=== PATIENT | male | born 1985 | race Two or more races ===

== ENCOUNTER 2017-03-10 18:37 | Emergency (ER) | payer SELFPAY ==
[~2017-03-10] VITALS: Ht 170.2 cm; Wt 100.0 kg
[2017-03-10] MEDS ORDERED: ACETAMINOPHEN 325MG TABLET PO ONE (22:30)
[2017-03-10] MEDS ORDERED: IBUPROFEN 800MG TABLET PO ONE (22:30)
[2017-03-10 23:00] VITALS: BP 127/74
== END 2017-03-10 23:00 | disposition home or self-care (01) ==
LOC: ER 18:38
DX: M25.562 Pain in left knee (principal); M25.561 Pain in right knee; M54.2 Cervicalgia; V43.52XA Car driver injured in collision with other type car in traffic accident, initial encounter; Y93.89 Activity, other specified; Y99.8 Other external cause status; Y92.89 Other specified places as the place of occurrence of the external cause
CPT/HCPCS: 73560; 99284